=== PATIENT | female | born 1975 | race Caucasian/White ===

== ENCOUNTER 2017-02-22 10:41 | Emergency (ER) | payer OTHER | END 2017-02-22 11:08 | disposition home or self-care (01) | LOC: CFTX 10:41 → CED 10:41 → CFTX 11:04 | DX: S30.861A Insect bite (nonvenomous) of abdominal wall, initial encounter (principal); F17.200 Nicotine dependence, unspecified, uncomplicated; W57.XXXA Bitten or stung by nonvenomous insect and other nonvenomous arthropods, initial encounter | CPT/HCPCS: 99281 ==

== ENCOUNTER 2017-02-24 10:59 | Emergency (ER) | payer OTHER | END 2017-02-24 11:40 | disposition home or self-care (01) | LOC: CFTX 10:59 → CED 10:59 → CFTX 11:34 | DX: S71.152A Open bite, left thigh, initial encounter (principal); B02.9 Zoster without complications; F17.210 Nicotine dependence, cigarettes, uncomplicated; Z23 Encounter for immunization; W57.XXXA Bitten or stung by nonvenomous insect and other nonvenomous arthropods, initial encounter; Y92.9 Unspecified place or not applicable | CPT/HCPCS: 90471; 90715; 99283 ==